=== PATIENT | male | born 1995 | race Caucasian/White ===

== ENCOUNTER 2023-07-20 05:54 | Emergency (ER) | payer SELFPAY ==
[~2023-07-20] VITALS: Ht 172.7 cm; Wt 60.3 kg
[2023-07-20 05:55] VITALS: BP 130/90; PULSE 102; RESP 17; TEMP 97.7; O2SAT 99
[2023-07-20 07:20] VITALS: BP 130/90; PULSE 102; RESP 17; TEMP 97.7; O2SAT 99
== END 2023-07-20 07:16 ==
LOC: MED 05:54
DX: S10.93XA Contusion of unspecified part of neck, initial encounter (principal); S50.811A Abrasion of right forearm, initial encounter; S60.511A Abrasion of right hand, initial encounter; M25.561 Pain in right knee; V89.2XXA Person injured in unspecified motor-vehicle accident, traffic, initial encounter; Y93.89 Activity, other specified; Y92.410 Unspecified street and highway as the place of occurrence of the external cause; Y99.8 Other external cause status
CPT/HCPCS: 71045; 73562; 90471; 90715; 99284